=== PATIENT | male | born 1995 | race Two or more races ===

== ENCOUNTER 2022-01-24 08:52 | Emergency (ER) | payer OTHER ==
[~2022-01-24] VITALS: Ht 188 cm; Wt 82.6 kg
== END 2022-01-24 10:56 | disposition home or self-care (01) ==
LOC: ER 08:52
DX: F41.8 Other specified anxiety disorders (principal); Z91.013 Allergy to seafood

== ENCOUNTER 2022-05-14 12:35 | Emergency (ER) | payer OTHER ==
[~2022-05-14] VITALS: Ht 188 cm; Wt 81.6 kg
== END 2022-05-14 13:24 | disposition home or self-care (01) ==
LOC: ER 12:35
DX: M94.0 Chondrocostal junction syndrome [Tietze] (principal); G44.209 Tension-type headache, unspecified, not intractable; Z91.013 Allergy to seafood